=== PATIENT | female | born 2000 | race Caucasian/White ===

== ENCOUNTER 2021-06-26 00:50 | Emergency (ER) | payer OTHER ==
[~2021-06-26] VITALS: Ht 170.2 cm; Wt 63.5 kg
[2021-06-26 01:09] VITALS: BP 118/66
--- NOTE | 2021-06-26 02:42 | NUR ---
PT TAKEN TO BED 3
--- NOTE | 2021-06-26 03:29 | NUR ---
ERMD at bedside for examination
[2021-06-26] MEDS ORDERED: IBUPROFEN 600 MG TAB PO ONE (03:35)
[2021-06-26 04:09] VITALS: BP 118/66
--- NOTE | 2021-06-26 04:10 | NUR ---
Patient discharged with v/s stable. Written and verbal after care instructions given and explained. Patient verbalized understanding. Ambulatory with steady gait. All questions addressed prior to discharge. Advised to follow up with PMD.
== END 2021-06-26 04:10 | disposition home or self-care (01) ==
LOC: MED 00:50
DX: S06.0X0A Concussion without loss of consciousness, initial encounter (principal); R42 Dizziness and giddiness; W22.8XXA Striking against or struck by other objects, initial encounter; Y93.89 Activity, other specified; Y92.89 Other specified places as the place of occurrence of the external cause; Y99.8 Other external cause status
CPT/HCPCS: 81025; 99282